=== PATIENT | male | born 1970 | race Hispanic/Latino ===

== ENCOUNTER 2018-09-09 15:24 | Emergency (ER) | payer BC ==
[~2018-09-09] VITALS: Ht 167.6 cm; Wt 85.7 kg
[~2018-09-09 15:24] MED LIST: Z.0.AMARYL1 MG PO; Z.0.ASPIRIN325 MG PO; Z.0.CARVEDILOL3.125 PO; Z.0.GLUCOPHAGE1000 M PO; Z.0.LOSARTAN POTASS5 PO; Z.0.SIMVASTATIN20 MG PO
[2018-09-09] MEDS ORDERED: ONDANSETRON HCL INJ 2MG/ML 2ML 2 MG/ML VIAL IV STA (15:38)
[2018-09-09] MEDS ORDERED: MORPHINE SULFATE INJ 4 MG/ML INJ 1ML IV PRN (15:45)
[2018-09-09] MEDS ORDERED: IOPAMIDOL 370 MG/ML 200 ML INFUS..BTL INJ ONE (15:46)
[2018-09-09] MEDS ORDERED: SODIUM CHLORIDE 0.9% 50ML 50 ML ONE (15:46)
[2018-09-09 17:10] VITALS: BP 142/82
--- NOTE | 2018-09-09 17:16 | Diagnostic Imaging Report ---
EXAM: CT Abdomen and Pelvis WITH contrast INDICATION: ^[id number] ^[id number] COMPARISON: None. TECHNIQUE: Abdomen and pelvis were scanned utilizing a multidetector helical scanner from the lung base to the pubic symphysis after administration of IV contrast. Coronal and sagittal reformations were obtained. Routine protocol was performed. Scan was performed when during portal venous phase. IV CONTRAST: 100 mL of Isovue-370 ORAL CONTRAST: None RADIATION DOSE: Total DLP: 723.6 mGy*cm Estimated effective dose: (DLP x 0.015 x size factor) mSv COMPLICATIONS: None FINDINGS: LINES and TUBES: None. LOWER THORAX: Unremarkable HEPATOBILIARY: No focal hepatic lesions. No biliary ductal dilation. GALLBLADDER: No radio-opaque stones or sludge. No wall thickening. SPLEEN: No splenomegaly. PANCREAS: No focal masses or ductal dilatation. ADRENALS: No adrenal nodules KIDNEYS/URETERS: Kidneys enhance symmetrically. No hydronephrosis. No cystic or solid mass lesions. No stones. GI TRACT: No abnormal distention, wall thickening, or evidence of bowel obstruction. Appendix is normal. PELVIC ORGANS/BLADDER: Unremarkable. LYMPH NODES: No lymphadenopathy. VESSELS: Unremarkable. PERITONEUM / RETROPERITONEUM: No free air or fluid. BONES: Unremarkable. SOFT TISSUES: Large acute hematoma in the posterior left thigh at the level of the iliac bone containing acute blood and measuring 5.2 x 3.1 cm on series 2, image 57 suggestive of injury of small superficial veins. There is moderate amount of surrounding fat stranding in the left lateral pelvic wall. IMPRESSION: 1. Acute large hematoma in the left posterior thigh containing acute blood and suggestive of injury a small superficial vessels. Recommend close follow up with physical exam. 2. No posttraumatic abnormalities in the cavity of the abdomen and pelvis. 3. These findings were communicated to Dr. Franco on 09/09/2018 at 5:05 PM. Signed by: Dr. Abbi Weber M.D. on 09/09/2018 5:13 PM
[2018-09-09] MEDS ORDERED: FENTANYL CITRATE/PF 100MCG/2 ML INJ IV ONE (17:30)
== END 2018-09-09 17:40 | disposition home or self-care (01) ==
LOC: FSED 15:24
DX: S30.1XXA Contusion of abdominal wall, initial encounter (principal); S30.0XXA Contusion of lower back and pelvis, initial encounter; S70.12XA Contusion of left thigh, initial encounter; W10.9XXA Fall (on) (from) unspecified stairs and steps, initial encounter; Y92.009 Unspecified place in unspecified non-institutional (private) residence as the place of occurrence of the external cause; I10 Essential (primary) hypertension; E11.9 Type 2 diabetes mellitus without complications; E78.5 Hyperlipidemia, unspecified; F17.200 Nicotine dependence, unspecified, uncomplicated; Z79.84 Long term (current) use of oral hypoglycemic drugs; Z79.82 Long term (current) use of aspirin
CPT/HCPCS: 74177; 80053; 85025; 99284; J2405; Q9967